=== PATIENT | male | born 1955 ===

== ENCOUNTER → 2018-12-07 14:23 | Outpatient (CLI) | payer MEDICARE ==
[2018-12-07 16:53] LABS: APPEARANCE CLEAR (CLEAR); BILIRUBIN NEGATIVE (NEGATIVE); COLOR YELLOW (YELLOW); GLUCOSE NEGATIVE (NEGATIVE); KETONE NEGATIVE (NEGATIVE); NITRITE NEGATIVE (NEGATIVE); PROTEIN NEGATIVE (NEGATIVE); SPECIFIC GRAVITY 1.005 (1.005-1.020); UROBILINOGEN NORMAL (NORMAL)
== END | disposition home or self-care (01) ==
LOC: D.LABREF 14:23
PROVIDERS: ATTEND Family Medicine
DX: R43.9 Unspecified disturbances of smell and taste (principal)